=== PATIENT | male | born 1995 | race Caucasian/White ===

== ENCOUNTER 2017-12-21 02:37 | Emergency (ER) | payer BC, OTHER ==
--- NOTE | 2017-12-21 03:12 | EDM.PDOC ---
ED HPI GENERAL MEDICAL PROBLEM - General Chief Complaint: Upper Extremity Injury/Pain Stated Complaint: left elbow pain Time Seen by Provider: 12/21/17 02:54 Source of Information: Reports: Patient History Limitations: Reports: No Limitations - History of Present Illness INITIAL COMMENTS - FREE TEXT/NARRATIVE: This patient is a 22 year old male that presents to the ER. Patient reports that this morning he was climbing a building on a ladder. He reports that he was not up that high, but does not recall the height. Patient reports that he missed a step, fell backwards, and landed on his left elbow. Patient denies hitting his head. He denies ribera, dizziness, n, v, vision changes, neck pain, back pain, shoulder pain, upper arm pain, forearm pain, hand pain, abd pain, chest pain, hip or pelvis pain, leg pain, or foot pain. Patient only pain complaint is to the left elbow. Patient pulses +2, cap refill < 2sec, sensory intact. Neurovascular intact. Flexion and full extension of the elbow is decreased due to pain. Onset: Today Location: Reports: Upper Extremity, Left Front/Back Body Image: 1 - pain, tenderness, swelling. Quality: Reports: Ache Severity: Mild Improves with: Reports: Immobilization Worsens with: Reports: Movement Associated Symptoms: Reports: No Other Symptoms. Denies: Confusion, Chest Pain , Cough, cough w sputum, Diaphoresis, Fever/Chills, Headaches, Loss of Appetite , Malaise, Nausea/Vomiting, Rash, Seizure, Shortness of Breath, Syncope, Weakness Left Elbow Pain Score (Numeric/FACES): 8 - Related Data Allergies Allergy/AdvReac Type Severity Reaction Status Date / Time No Known Allergies Allergy Verified 12/21/17 02:43 Home Meds: Home Meds Cyclobenzaprine [Flexeril] 5 mg PO ASDIRECTED PRN 12/21/17 [History] Meloxicam 15 mg PO ASDIRECTED PRN 12/21/17 [History] Past Medical History Musculoskeletal History: Reports: Back Pain, Chronic, Other (See Below) Other Musculoskeletal History: pulled a groin muscle about a week ago Review of Systems - Review of Systems Review Of Systems: See Below Constitutional: Reports: No Symptoms Eyes: Reports: No Symptoms Ears: Reports: No Symptoms Nose: Reports: No Symptoms Mouth/Throat: Reports: No Symptoms Respiratory: Reports: No Symptoms Cardiovascular: Reports: No Symptoms GI/Abdominal: Reports: No Symptoms Genitourinary: Reports: No Symptoms Musculoskeletal: Reports: Joint Pain (left elbow pain), Joint Swelling (left elbow). Denies: Neck Pain, Shoulder Pain, Back Pain, Hand Pain, Leg Pain, Foot Pain Skin: Reports: No Symptoms Neurological: Reports: No Symptoms Psychiatric: Reports: No Symptoms ED EXAM, GENERAL - Physical Exam Exam: See Below Exam Limited By: No Limitations General Appearance: Alert, WD/WN, No Apparent Distress Eye Exam: Bilateral Eye: EOMI, Normal Inspection, PERRL Ears: Normal External Exam, Normal Canal, Hearing Grossly Normal, Normal TMs Ear Exam: Bilateral Ear: Auricle Normal, Canal Normal, TM normal Nose: Normal Inspection, Normal Mucosa, No Blood Throat/Mouth: Normal Inspection, Normal Lips, Normal Teeth, Normal Gums, Normal Oropharynx, Normal Voice, No Airway Compromise Head: Atraumatic, Normocephalic Neck: Normal Inspection, Supple, Non-Tender, Full Range of Motion Respiratory/Chest: No Respiratory Distress, Lungs Clear, Normal Breath Sounds, No Accessory Muscle Use, Chest Non-Tender Cardiovascular: Normal Peripheral Pulses, Regular Rate, Rhythm, No Edema, No Gallop, No JVD, No Murmur, No Rub Peripheral Pulses: 2+: Radial (L), Radial (R) (Male) Exam: Deferred Rectal (Males) Exam: Deferred Back Exam: Normal Inspection, Full Range of Motion. No: CVA Tenderness (L), CVA Tenderness (R), Decreased Range of Motion, Muscle Spasm, Paraspinal Tenderness, Vertebral Tenderness Extremities: No Pedal Edema, Normal Capillary Refill, Joint Swelling (Left Elbow ), Limited Range of Motion (Due to pain to the left elbow), Other (Pain, tenderness, swelling left elbow. ) Neurological: Alert, Oriented, Normal Gait Psychiatric: Normal Affect, Normal Mood Skin Exam: Warm, Dry, Intact, Normal Color, No Rash Course - Vital Signs Last Recorded V/S: Last Vital Signs Temp 96.7 F 12/21/17 02:44 Pulse 96 12/21/17 02:44 Resp 16 12/21/17 02:44 BP 156/52 H 12/21/17 02:44 Pulse Ox 99 12/21/17 02:44 - Orders/Labs/Meds Orders: Active Orders 24 hr Category Date Time Status Elbow Min 3V Lt [CR] Stat Exams 12/21/17 02:55 Taken Meds: Medications Discontinued Medications Generic Name Dose Route Start Last Admin Trade Name Ace PRN Reason Stop Dose Admin Hydrocodone Bitart/Acetaminophen 1 tab 12/21/17 03:23 12/21/17 03:30 [place] 325-5 Mg PO 12/21/17 03:24 1 tab ONETIME ONE Administration - Radiology Interpretation Free Text/Narrative:: Elbow: No fx. No dislocation. Departure - Departure Time of Disposition: 04:50 Disposition: Home, Self-Care 01 Condition: Fair Clinical Impression: Elbow contusion Qualifiers: Encounter type: initial encounter Laterality: left Qualified Code(s): S50.02XA - Contusion of left elbow, initial encounter - Discharge Information Instructions: Elbow Contusion, [id number] Referrals: Provider,Unknown [Primary Care Provider] - Forms: ED Department Discharge Additional Instructions: Followup with your primary care provider as needed Followup with orthopedic if pain continues after 10 days: As could have occult fracture. Rest Ice Elevate Sling as needed Tylenol or IbuProfen as needed for pain Provider will call if indicated re: xray results - My Orders Last 24 Hours: My Active Orders 12/21/17 02:55 Elbow Min 3V Lt [CR] Stat - Assessment/Plan Last 24 Hours: My Active Orders 12/21/17 02:55 Elbow Min 3V Lt [CR] Stat Plan: PLEASE SEE RN NOTE FOR PFSH
[2017-12-21] MEDS ORDERED: Acetaminophen/HYDROcodone 325-5 MG Tab PO ONE (03:23)
== END 2017-12-21 04:50 | disposition home or self-care (01) ==
LOC: CC.ED 02:37
DX: S50.02XA Contusion of left elbow, initial encounter (principal); W11.XXXA Fall on and from ladder, initial encounter
CPT/HCPCS: 73080-LT; 99283; A9270-GY